=== PATIENT | female | born 1995 ===

== ENCOUNTER 2020-12-02 10:37 | Emergency (ER) | payer OTHER ==
[~2020-12-02] VITALS: Ht 182.9 cm; Wt 72.7 kg
[2020-12-02 10:37] VITALS: BP 134/82; TEMP 98.4
[2020-12-02 12:38] VITALS: PULSE 75
== END 2020-12-02 12:38 | disposition home or self-care (01) ==
LOC: COL.ER 10:37
DX: S93.402A Sprain of unspecified ligament of left ankle, initial encounter (principal); X50.1XXA Overexertion from prolonged static or awkward postures, initial encounter; Y93.66 Activity, soccer